=== PATIENT | male | born 1955 | race Caucasian/White ===

== ENCOUNTER 2017-03-31 13:47 | Emergency (ER) | payer OTHER ==
[~2017-03-31] VITALS: Ht 165.1 cm; Wt 76.0 kg
[~2017-03-31 13:47] MED LIST: NAPR275T83 PO
[2017-03-31 13:57] VITALS: Ht 165.1 cm; Wt 76.0 kg
[2017-03-31] MEDS ORDERED: BISM-34 PO (14:26)
--- NOTE | 2017-03-31 15:36 | ERD ---
ER Documentation Chief Complaint Date/Time DATE: 03/31/17 TIME: 15:34 Chief Complaint Complains of Diarrhea HPI This patient is a 61-year-old male presenting to the emergency department with complaints of intermittent diarrhea for the past 2 days. Today he only had one episode of diarrhea. He denies any blood or mucus in the diarrhea. He also had tactile fevers yesterday. This symptom has now resolved. Symptoms are improving overall. The patient denies sick contacts, recent travel, nausea, vomiting, abdominal pain, chest pain, shortness of breath, or other symptoms. ROS All systems reviewed and are negative except as per history of present illness. Medications Home Meds Active Scripts Bismuth Subsalicylate* (Bismuth Subsalicylate*) 262 Mg/15 Ml Oral.susp, 15 ML PO Q6 Y for DIARRHEA, #1 BOT Prov:CORRINA LONG PA-C 03/31/17 Reported Medications Naproxen Sodium* (Naproxen*) 275 Mg Tablet, 275 MG PO BID, TAB 11/22/14 Allergies Allergies: Coded Allergies: No Known Allergy (Unverified , 11/22/14) PMhx/Soc Hx Alcohol Use: No Hx Substance Use: No Hx Tobacco Use: No Physical Exam Vitals Vital Signs Date Time Temp Pulse Resp B/P Pulse Ox O2 Delivery O2 Flow Rate FiO2 03/31/17 13:57 98.3 87 20 143/77 97 Physical Exam Const: Nontoxic, well-appearing male in no acute distress. Head: Atraumatic Eyes: Normal Conjunctiva ENT: Normal External Ears, Nose and Mouth. Neck: Full range of motion..~ No meningismus. Resp: Clear to auscultation bilaterally Cardio: Regular rate and rhythm, no murmurs Abd: Soft, non tender, non distended. Normal bowel sounds. There is no rebound tenderness or guarding. No McBurney's point tenderness. Negative London sign. Skin: No petechiae or rashes Back: No midline or flank tenderness Ext: No cyanosis, or edema Neur: Awake and alert Psych: Normal Mood and Affect Procedures/MDM 7-year-old male presents to the emergency department with complaints of diarrhea ongoing intimately for the past 2 days. On physical examination the patient's vitals are within normal limits. There are no physical examination findings to show severe dehydration, sepsis, or other emergent conditions. The patient has no abdominal tenderness on palpation. I low suspicion for acute abdomen, septicemia, colitis, diarrhea secondary to bacterial source or other emergent conditions. The patient is stable for outpatient management with a prescription for bismuth subsalicylate. The patient is to have close follow-up with a primary care physician. Strict ER return precautions were discussed and the patient demonstrated good understanding. Departure Diagnosis: Primary Impression: Diarrhea Diarrhea type: unspecified type Qualified Code: R19.7 - Diarrhea, unspecified type Condition: Fair Patient Instructions: Treating Diarrhea Additional Instructions: Follow up with your PCP within the next 1-3 days for a repeat evaluation and a possible referral to a specialist, if required. Return the the emergency department immediately if symptoms worsen or change. If you have any questions regarding medications, ask your pharmacist or us before you leave. If any adverse reactions, occur while taking your medications, discontinue the treatment and return to the emergency department immediately. If any new or worsening symptoms, uncontrolled fevers, or other unexplained symptoms occur, return to the emergency department immediately. Take your medications as directed, and complete the entire course of treatment. CORRINA LONG PA-C Mar 31, 2017 15:36
== END 2017-03-31 14:27 | disposition home or self-care (01) ==
LOC: E/R 13:47
DX: R19.7 Diarrhea, unspecified (principal)
CPT/HCPCS: 99283